=== PATIENT | male | born 1980 | race Caucasian/White ===

== ENCOUNTER 2025-07-30 17:20 | Emergency (ER) | payer BC ==
[~2025-07-30] VITALS: Ht 180.3 cm; Wt 109.6 kg
[2025-07-30 17:28] VITALS: BP 135/95; PULSE 110; RESP 16; O2SAT 97
--- NOTE | 2025-07-30 18:10 | Physician Documentation ---
History of Present Illness ~ Chief Complaint: Medical Clearance Stated Complaint: MED CLEARANCE Time Seen by MD: 17:36 HPI Patient presents to the emergency department for medical clearance to present to alcohol rehabilitation program. Patient reports he last drank approximately 30 minutes ago. Patient has reported at this time. Medication Reconciliation Allergies: Coded Allergies: Sulfa (Sulfonamide Antibiotics) (Verified Allergy, Unknown, 07/30/25) Review of Systems ROS Scribed for Heavenly Lindsey by MARIAA Freed . 07/30/25 19:32 Physical Exam Vital Signs: Temperature: 98.3, Source: Temporal, Heart Rate: 110, Respiratory Rate: 16, BP: 135/95, Pulse Oximetry: 97, Weight: 109.600 Oxygen Flow Rate: 0 Physical Exam VITALS: Reviewed and as above. GENERAL: Alert, no apparent distress. HEENT: Normocephalic, atraumatic, PERRL, EOMI, dry mucosa, no erythema RESPIRATORY: Lungs clear, normal breath sounds, no respiratory distress. CHEST: No accessory muscle use, no retractions CV: Regular rate, rhythm, no edema, no murmur, No: JVD GI: Soft, non-tender, bowels sounds present, no rebound, guarding, or rigidity BACK: No CVA tenderness, or swelling MUSCULOSKELETAL No deformities, no edema SKIN: Warm and dry, no rash NEURO: Oriented x4, No motor or sensory deficit PSYCH: Normal mood and affect, no agitation Progress Results/Orders Results/Orders Vital Signs 07/30/25 17:28 Temp 98.3 Pulse 110 Resp 16 B/P (MAP) 135/95 Pulse Ox 97 O2 Flow Rate 0 Medical Decision Making Additional information obtaine: other Findings 44-year-old male evaluated in the emergency department for medical clearance prior to transfer to [facility] [place] for alcohol withdrawal management. No current withdrawal symptoms; patient reports only mild anxiety during previous withdrawal episodes and denies history of withdrawal seizures or delirium tremens. Assessment: Patient is at low risk for severe or complicated alcohol withdrawal based on history and current presentation. No comorbidities or complicating factors identified. Outpatient management is appropriate. Plan: Pharmacotherapy: Diazepam (Valium) 510 mg PO every 8 hours as needed for withdrawal symptoms, to be taken only if symptoms develop. Dose should be reduced if drowsiness occurs. Patient instructed to abstain from alcohol and avoid other [employer] depressants while taking diazepam due to risk of respiratory depression and impairment. Warned against driving or operating heavy machinery during benzodiazepine use, especially in the first few days. Diazepam should be tapered and discontinued after the acute withdrawal period to minimize risk of dependence. Monitoring: Patient will follow up with primary care provider at [facility] for ongoing assessment and dose adjustment as needed. Advised to return to the emergency department for any worsening symptoms (e.g., confusion, hallucinations, severe agitation, seizures) or other concerning developments discussed today. Supportive care: Emphasized importance of hydration, nutrition, and rest. Consider thiamine supplementation (100 mg PO daily for 35 days) to prevent Wernickes encephalopathy, per standard outpatient protocol. Education: Risks of combining benzodiazepines with alcohol or other sedatives reviewed. Signs and symptoms of severe withdrawal discussed, with clear instructions for when to seek emergency care. Disposition: Medically cleared for transfer to [facility] at 1:00 a.m. tomorrow. Outpatient withdrawal management with as-needed diazepam is appropriate given low risk profile and reliable follow-up. Differential Dx:Considerations: Include: Intoxication-Alcohol, Intoxication- Other drug, Personality disorder, Substance abuse disorder, Acute delirium, Emily sed head injury, Cervical spine injury, Skull fracture, Fracture(s), Abrasion, Contusion, Foreign body, Hematoma, Laceration, Alcohol withdrawl syndrom, Encephalopathy, Hepatitis, Medically stable, Other Departure Disposition: 01 HOME / SELF CARE / HOMELESS Impression: Primary Impression: General medical exam Condition: Stable Discharge Instructions: Medical Screening Exam Additional Instructions: You are being discharged for outpatient management of alcohol withdrawal. Please follow these instructions carefully to help ensure your safety and recovery. Medication: Take diazepam (Valium) 510 mg by mouth every 8 hours as needed for withdrawal symptoms such as anxiety, tremor, or agitation. Only take this medication if you are experiencing symptoms. Do not exceed the prescribed dose. Do not drink alcohol or use other sedatives while taking diazepam. Do not drive or operate heavy machinery while taking this medication, as it may cause drowsiness or impair your ability to think clearly. Supportive Care: Stay hydrated and eat regular, nutritious meals. Rest as much as possible. Consider taking thiamine (vitamin B1) 100 mg by mouth daily for 35 days to help protect your nerves and brain during withdrawal. Monitoring: Withdrawal symptoms can start within 624 hours after your last drink and may last up to 5 days. Common symptoms include anxiety, tremors, sweating, trouble sleeping, nausea, and feeling restless. You will be monitored daily at the rehabilitation center. If you notice your symptoms getting worse, or if you develop confusion, hallucinations (seeing or hearing things that are not there), severe agitation, seizures, chest pain, or trouble breathing, seek emergency care immediately. Follow-Up: You will follow up with your primary care provider at the rehabilitation center. Return to the emergency department if you have any new or worsening symptoms, or if you are concerned about your health. Long-Term Recovery: Ongoing treatment for alcohol use disorder is important for your long-term health. Discuss options for counseling, support groups, or medications to help prevent relapse with your care team at the rehabilitation center. If you have any questions or concerns, contact your healthcare provider or seek emergency care. Your safety is our top priority. Referrals: NO PRIMARY CARE PROVIDER (PCP) Prescriptions Diazepam (Valium) 5 Mg Tablet 1 TAB PO TID PRN PRN for anxiety for 5 Days, #15 TAB 0 Refills Prov: HEAVENLY LINDSEY 07/30/25 Education Educated: Patient Educated regarding: diagnosis, treatment, need for follow up Signature Scribe Signature: A Attestation: Scribed for Heavenly Lindsey by MARIAA Freed . 07/30/25 19:58 HEAVENLY LINDSEY Jul 30, 2025 18:10
[2025-07-30] MEDS ORDERED: DIAZ-63 PO (19:56)
[2025-07-30 20:04] VITALS: TEMP 98.3
[2025-07-31] MEDS ORDERED: DIAZ-63 PO (13:25)
[2025-07-31] MEDS ORDERED: DIAZ-351 PO (13:28)
== END 2025-07-30 20:08 | disposition home or self-care (01) ==
LOC: ER 17:21
DX: Z00.00 Encounter for general adult medical examination without abnormal findings (principal); Z88.2 Allergy status to sulfonamides
CPT/HCPCS: 99282